=== PATIENT | male | born 1950 | race Caucasian/White ===

== ENCOUNTER 2021-08-15 07:49 | Outpatient (CLI) | payer MEDICARE, SELFPAY ==
[2021-08-15 08:15] LABS: Basophils Absolute Auto 0.1 K/mm3 (0.0-0.1); Basophils Percent Auto 0.7 % (0.2-1.2); Eosinophils Absolute Auto 0.4 K/mm3 (0-0.3); Eosinophils Percent Auto 5.3 % (0-4.4); Hemoglobin 13.5 g/dL (14.0-18.0); Immature Granulocyte Absolute 0.01 K/mm3 (0.00-0.031); Immature Granulocyte Percent A 0.1 % (0-0.5); Lymphocytes Absolute Auto 1.82 K/mm3 (0.9-3.2); Lymphocytes Percent Auto 26.9 % (18.3-44.2); Mean Corpuscular HGB Conc 33.8 g/dl (32-36); Mean Corpuscular Hemoglobin 32.8 pg (26-34); Mean Corpuscular Volume 97.1 fl (80-100); Mean Platelet Volume 9.7 fl (7.4-10.4); Monocytes Absolute Auto 0.8 K/mm3 (0.1-0.6); Neutrophils Absolute Auto 3.7 K/mm3 (1.3-6.7); Platelet Count Result 207 k/mm3 (150-375); Red Blood Count 4.12 M/mm3 (4.6-6.20); Red Cell Distribution Width 13.5 % (11.5-14.5); White Blood Count 6.8 K/mm3 (4.5-10.0)
[2021-08-15 08:30] LABS: Alanine Aminotransferase 61 U/L (4-50); Albumin Level 4.3 g/dL (3.5-5.1); Alkaline Phosphatase 41 U/L (38-126); Anion Gap 10 mmol/L (8-16); Aspartate Amino Transferase 57 U/L (17-59); Bilirubin,Total 0.4 mg/dL (0.2-1.3); Blood Urea Nitrogen 10 mg/dL (9-20); Calcium 9.3 mg/dL (8.4-10.2); Carbon Dioxide 27 mmol/L (22-30); Chloride 102 mmol/L (98-107); Cholesterol 152 mg/dL (0-200); Estimated Glomerular Filt Rate > 60; Glucose 122 mg/dL (65-110); HDL Direct 59 mg/dL; Potassium 4.6 mmol/L (3.4-5.0); Sodium 139 mmol/L (137-145); Triglycerides 79 mg/dL (<150)
[2021-08-15 08:41] LABS: LDL Cholesterol Direct 69 mg/dL
== END 2021-08-15 07:50 | disposition home or self-care (01) ==
LOC: ANHLAB 07:54
DX: R07.9 Chest pain, unspecified (principal)
CPT/HCPCS: 36415; 80053; 80061; 85025

== ENCOUNTER 2022-05-24 09:31 | Outpatient (CLI) | payer MEDICARE, SELFPAY ==
--- NOTE | 2022-05-24 11:00 | NEURO_ITS ---
Impression: # History of bilateral Carpal Tunnel Syndrome, complaining of pain and numbness in both hands. # Bilateral ulnar neuropathy with slowing across the elbows. # Mild bilateral Carpal Tunnel Syndrome. # Normal needle/EMG exam. # Clinical correlation recommended. Motor Nerve Conduction Upper Extremities Median Nerve Conduction Velocity (m/sec) Terminal Latency (msec) Response Voltage(mV) Elbow-Wrist Wrist Elbow Wrist Right 53 4.3 2 3 Left 58 4.0 3 4 Ulnar Nerve Conduction Velocity (m/sec) Terminal Latency (msec) Response Voltage(mV) Above Elbow Below Elbow Wrist Above Elbow Below Elbow Wrist Right 44 53 3.0 4 5 6 Left 46 57 2.7 5 5 6 F-Wave Latency Median (ms) Ulnar (ms) Right 30.7 27.0 Left 30.7 27.5 Sensory Nerve Conduction Upper Extremities Median Nerve Stimulation Terminal Latency (msec) Wrist/Digit Response Voltage (uV) Wrist Right 3.8/4.0 21/29 Left 3.8/4.1 31/20 Ulnar Nerve Stimulation Terminal Latency (msec) Wrist/Digit Response Voltage (uV) Wrist Right 2.8 17 Left 2.9 12 Radial Nerve Terminal Latency (msec) Response Voltage(mV) Right 2.0 32 Left 2.1 15 Left Right Muscles Examined Fibrillation Fasciculation Scarcity Voltage Duration Left Right Left Right Left Right Left Right Left Right Deltoid Biceps X X Brachioradialis Triceps X X Pronator Teres X X Ext Indicis X X Ext Digitorum X X Abd Poll Brev X X 1st Dorsal Interosseus Paraspinals MTDD
== END 2022-05-24 09:32 | disposition home or self-care (01) ==
PROVIDERS: Visit Provider Plastic Surgery
DX: G56.23 Lesion of ulnar nerve, bilateral upper limbs (principal); G56.03 Carpal tunnel syndrome, bilateral upper limbs
CPT/HCPCS: 95886; 95911

== ENCOUNTER 2023-03-30 06:51 | Outpatient (CLI) | payer MEDICARE, SELFPAY ==
[2023-03-30 07:35] LABS: Basophils Absolute Auto 0.1 K/mm3 (0.0-0.1); Basophils Percent Auto 0.7 % (0.2-1.2); Eosinophils Absolute Auto 0.3 K/mm3 (0-0.3); Hematocrit 41.4 % (42.0-52.0); Immature Granulocyte Absolute 0.02 K/mm3 (0.00-0.031); Immature Granulocyte Percent A 0.3 % (0-0.5); Lymphocytes Absolute Auto 1.71 K/mm3 (0.9-3.2); Lymphocytes Percent Auto 25.4 % (18.3-44.2); Mean Corpuscular HGB Conc 33.8 g/dl (32-36); Mean Corpuscular Hemoglobin 32.8 pg (26-34); Mean Platelet Volume 9.9 fl (7.4-10.4); Monocytes Absolute Auto 0.8 K/mm3 (0.1-0.6); Monocytes Percent Auto 11.7 % (2.6-8.5); Neutrophils Absolute Auto 3.8 K/mm3 (1.3-6.7); Neutrophils Percent Auto 56.9 % (45.5-73.1); Platelet Count Result 226 k/mm3 (150-375); Red Blood Count 4.27 M/mm3 (4.6-6.20); Red Cell Distribution Width 13.2 % (11.5-14.5); White Blood Count 6.7 K/mm3 (4.5-10.0)
[2023-03-30 07:42] LABS: Alanine Aminotransferase 50 U/L (6-50); Albumin Level 4.6 g/dL (3.5-5.1); Alkaline Phosphatase 48 U/L (38-126); Anion Gap 6 mmol/L (8-16); Aspartate Amino Transferase 54 U/L (17-59); Bilirubin,Total 0.6 mg/dL (0.2-1.3); Blood Urea Nitrogen 12 mg/dL (9-20); Calcium 9.4 mg/dL (8.4-10.2); Carbon Dioxide 29 mmol/L (22-30); Chloride 103 mmol/L (98-107); Cholesterol 174 mg/dL (0-200); Estimated Glomerular Filt Rate > 60; Glucose 104 mg/dL (65-110); HDL Direct 68 mg/dL; Sodium 138 mmol/L (137-145); Triglycerides 59 mg/dL (<150)
[2023-03-30 07:53] LABS: LDL Cholesterol Direct 82 mg/dL
== END 2023-03-30 06:52 | disposition home or self-care (01) ==
DX: I25.10 Atherosclerotic heart disease of native coronary artery without angina pectoris (principal); I10 Essential (primary) hypertension; E78.2 Mixed hyperlipidemia
CPT/HCPCS: 36415; 80053; 80061; 85025

== ENCOUNTER 2023-08-15 06:59 | Outpatient (CLI) | payer MEDICARE, SELFPAY ==
--- NOTE | ~2023-08-15 | XR_ITS ---
XR knee LT 3V DATE: 08/15/2023 07:24 INDICATION: Bilateral knee pain, right greater than left TECHNIQUE: [place] and standing AP and lateral views COMPARISON: None FINDINGS: There is femoral, popliteal and trifurcation artery calcification. Superior pole patellar enthesopathy at quadriceps tendon insertion site. There is mild periarticular spurring of the patella. Joint spaces are relatively well preserved. No r adiopaque intra-articular loose body or chondral calcinosis. No fracture or dislocation or joint effusion. No periosteal reaction or bone destruction. IMPRESSION: Mild patellofemoral osteoarthritis Prominent arterial calcifications Reviewed, dictated and finalized at location B. [place] [employer]
--- NOTE | ~2023-08-15 | XR_ITS ---
XR knee RT 3V DATE: 08/15/2023 07:25 INDICATION: Bilateral knee pain, right greater than left TECHNIQUE: [place] and standing AP and lateral views COMPARISON: None FINDINGS: Superior pole patellar enthesopathy. There is mild periarticular spurring of the patellofemoral joint. Joint spaces are relatively preserved. No fracture or dislocation or joint effusion. No radiopaque intra-articular loose body or, calcinosis . No periosteal reaction or bone destruction. Femoral, popliteal and trifurcation artery calcification. IMPRESSION: Mild patellofemoral osteoarthritis Reviewed, dictated and finalized at location B. [employer]
== END 2023-08-15 07:00 | disposition home or self-care (01) ==
DX: M17.0 Bilateral primary osteoarthritis of knee (principal)
CPT/HCPCS: 73562

== ENCOUNTER 2023-08-29 06:42 | Outpatient (CLI) | payer MEDICARE, SELFPAY ==
[2023-08-29 07:28] LABS: Basophils Percent Auto 0.3 % (0.2-1.2); Eosinophils Absolute Auto 0.1 K/mm3 (0-0.3); Eosinophils Percent Auto 0.6 % (0-4.4); Hematocrit 42.2 % (42.0-52.0); Hemoglobin 13.8 g/dL (14.0-18.0); Immature Granulocyte Absolute 0.04 K/mm3 (0.00-0.031); Immature Granulocyte Percent A 0.3 % (0-0.5); Lymphocytes Absolute Auto 3.59 K/mm3 (0.9-3.2); Lymphocytes Percent Auto 28.9 % (18.3-44.2); Mean Corpuscular HGB Conc 32.7 g/dl (32-36); Mean Corpuscular Hemoglobin 32.1 pg (26-34); Mean Corpuscular Volume 98.1 fl (80-100); Mean Platelet Volume 10.1 fl (7.4-10.4); Monocytes Absolute Auto 1.4 K/mm3 (0.1-0.6); Monocytes Percent Auto 10.9 % (2.6-8.5); Neutrophils Absolute Auto 7.3 K/mm3 (1.3-6.7); Platelet Count Result 221 k/mm3 (150-375); Red Cell Distribution Width 13.7 % (11.5-14.5); White Blood Count 12.4 K/mm3 (4.5-10.0)
[2023-08-29 07:31] LABS: Hemoglobin A1C 6.4 % (<5.7)
[2023-08-29 07:32] LABS: Alanine Aminotransferase 51 U/L (6-50); Albumin Level 4.6 g/dL (3.5-5.1); Alkaline Phosphatase 40 U/L (38-126); Anion Gap 7 mmol/L (8-16); Aspartate Amino Transferase 37 U/L (17-59); Bilirubin,Total 0.5 mg/dL (0.2-1.3); Blood Urea Nitrogen 15 mg/dL (9-20); CRP < 0.5 mg/dL (<1.0); Calcium 9.8 mg/dL (8.4-10.2); Carbon Dioxide 29 mmol/L (22-30); Chloride 106 mmol/L (98-107); Cholesterol 154 mg/dL (0-200); Estimated Glomerular Filt Rate > 60; Glucose 108 mg/dL (65-110); HDL Direct 58 mg/dL; Sodium 142 mmol/L (137-145); Triglycerides 61 mg/dL (<150); Uric Acid 5.8 mg/dL (3.5-8.5)
[2023-08-29 07:34] LABS: Appearance Urine Clear (Clear); Bacteria Urine None Seen /hpf; Bilirubin Urine Negative (Negative); Blood Urine 1+ (Negative); Color Urine Yellow (Yellow); Glucose Urine UA Negative (Negative); Ketones Urine Trace mg/dL (Negative); Leukocyte Esterase Ur Negative LEU/UL (Negative); Nitrate Urine Negative (Negative); Non Pathogenic Casts 0-2; Protein Urine Negative (Negative); RBC Urine 0-2 /hpf (0-2); Specific Grav Ur 1.022 (1.001-1.035); Squamous Epithelial Cell Urine None seen /hpf (Few); Urobilinogen Urine 0.2 mg/dL (<2.0); WBC Urine 0-5 /hpf; pH Urine 5.5 (5.0-9.0)
[2023-08-29 07:41] LABS: LDL Cholesterol Direct 80 mg/dL
[2023-08-29 07:59] LABS: Prostate Specific Antigen 0.8 ng/mL (< OR = 4.0)
[2023-08-29 08:22] LABS: Add Urine Microscopic? YES
[2023-08-29 08:33] LABS: Free T4 Free Thyroxine 0.73 ng/mL (0.78-2.19)
[2023-08-29 09:08] LABS: Erythrocyte Sedimentation Rate 21 mm/hr (0-20)
== END 2023-08-29 06:43 | disposition home or self-care (01) ==
LOC: ANHLAB 06:45
PROVIDERS: PCP Internal Medicine; Visit Provider Internal Medicine
DX: I10 Essential (primary) hypertension (principal); Z13.1 Encounter for screening for diabetes mellitus; Z79.899 Other long term (current) drug therapy; Z13.29 Encounter for screening for other suspected endocrine disorder; M25.461 Effusion, right knee; M25.561 Pain in right knee; E78.5 Hyperlipidemia, unspecified; Z12.5 Encounter for screening for malignant neoplasm of prostate
CPT/HCPCS: 36415; 80053; 80061; 81001; 83036; 84153; 84439; 84443; 84550; 85025; 85652; 86140; G0103

== ENCOUNTER 2023-09-03 10:37 | Outpatient (CLI) | payer MEDICARE, SELFPAY ==
--- NOTE | ~2023-09-03 | XR_ITS ---
EXAMINATION: XR fl inj knee RT for MR/CT DATE: 09/03/2023 11:21 INDICATION: Right knee pain TECHNIQUE: A time-out was performed to verify the patient's name, date of , and procedure to b e performed. The procedure including the risks, benefits, and alternatives was discussed with the pat ient. Risks discussed included bleeding and infection. The patient understood the risks and agreed to proceed. The skin overlying the lateral aspect of the right knee joint was prepped and draped in us ua sterile fashion. Anesthetic was administered with 1% lidocaine subcutaneously. A 22 G needle wa s advanced under fluoroscopic guidance into the joint. 44 mL of a 5:2:1 mixture of sterile saline:Om nipaque 350:1% lidocaine was injected into the right knee joint with intra-articular administration c onfirmed with intermittent fluoroscopy. The needle was removed and the entry site was cleaned and lazara ssed. There were no immediate complications. Fluoroscopy exposure time was 0.1 minutes. The total nu mber of images was 7. Total DAP was 0.088 Gycm^2 FINDINGS: Real-time fluoroscopy demonstrates the needle and contrast in the right knee joint. IMPRESSION: 1. Successful right knee joint injection of an iodinated contrast mixture for sequences knee arthrogr am which will be dictated separately. Reviewed, dictated and finalized at location A. [employer] IMPRESSION: 1. Successful right knee joint injection of an iodinated contrast mixture for s equences knee arthrogram which will be dictated separately.
--- NOTE | ~2023-09-03 | CT_ITS ---
EXAMINATION: CT knee RT w con DATE: 09/03/2023 12:13 INDICATION: Right knee pain TECHNIQUE: High resolution computed tomography (CT) of the right knee was performed with intra-articu lar contrast but without intravenous contrast. Details of the contrast mixture and joint injection myers ve been dictated separately. Additional sagittal and coronal reconstructions were performed. Automate d exposure control and iterative reconstruction technique were employed. The dose-length product was 225.61 mGy-cm. COMPARISON: None FINDINGS: Bone alignment is normal. No fracture. Full-thickness radial tear extending across the lateral aspect of the posterior horn of the medial meniscus near the posterior root. Partial-thickness cartilage lo ss with mild chondral surface irregularity along the anterior to central weightbearing medial femoral condyle and the anterior third of the medial tibial plateau. Lateral meniscus is normal. There is mi ld partial-thickness cartilage loss with smooth chondral surface along the lateral margin of the post erior weightbearing lateral femoral condyle. Remaining articular cartilage appears relatively preserv ed. There is deep chondral ulceration along the patellar apical ridge and medial facet. Cartilage thi ckness but are preserved but with additional deep chondral fissuring at the lateral patellar facet. T rochlear cartilage appears relatively preserved. There are enthesophytes at the patellar insertion of the distal quadriceps tendon. Small amount of peripheral vascular catheter lesion along the poplitea l artery extending into the anterior tibial artery and tibioperoneal trunk, the latter with up to 30% stenosis. Soft tissues are otherwise unremarkable. IMPRESSION: 1. Full-thickness radial tear near the posterior root of the medial meniscus. 2. Mild tricompartmental osteoarthritis Reviewed, dictated and finalized at location A. 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
== END 2023-09-03 10:38 ==
LOC: MICIMG 10:38
PROVIDERS: PCP Internal Medicine; Visit Provider Internal Medicine
DX: M25.461 Effusion, right knee (principal); M17.11 Unilateral primary osteoarthritis, right knee; S83.241A Other tear of medial meniscus, current injury, right knee, initial encounter; X58.XXXA Exposure to other specified factors, initial encounter
CPT/HCPCS: 20610; 73701; 77002; Q9967

== ENCOUNTER 2023-10-16 01:30 | Day surgery (SDC) | payer MEDICARE, SELFPAY ==
[2023-10-08 15:29] VITALS: BMI 23.0
--- NOTE | 2023-10-08 15:45 | PC.NURSE ---
Report to the Outpatient Waiting Room, entrance under the green pavilion located off [facility], at time _1130_ on date __10/16/23 . Planned Procedure Time: __1:30 PM . Time changes happen often and if your time is changed the preop area will call you the afternoon before. - You and your visitor will be asked to self-screen and do not enter if you have any COVID symptoms. - A mask is optional within the hospital at this time. Patients may have clear liquids (water, carbonated beverages, clear teas, apple juice) until 3 hours prior to surgery (1030 AM) with a maximum of 20 ounces. - No food from midnight until time of surgery - Infants may have breast milk until 4 hours before surgery, formula 6 hours prior to surgery. - Children will be allowed to drink immediately following surgery. If applicable, please bring a bottle or sippy cup to assist with drinking. Juice, water, soda, and popsicles are readily available. For infants on formula, please bring formula the day of surgery. Pacifiers are allowed. Take the following medications with a SIP of water the morning of surgery: _CARVEDILOL_ DO NOT STOP ANY OF YOUR OTHER PRESCRIPTION MEDICATIONS PRIOR TO SURGERY ?EXCEPT THE FOLLOWING Medications to discontinue per DR. SILVA/DR. LOPES - _PLAVIX 5 DAYS PRIOR TO SURGERY, Date to take last dose 10/10/23_ Please no make-up, nail indonesian, hairspray, perfume, deodorant, or body powder the day of surgery. No jewelry (including any body piercings) or valuables the day of surgery, leave them at home. Please take a shower or bath the night before, or the morning of, surgery with an antibacterial soap. Wear comfortable, loose fitting clothing. Children are encouraged to wear pajamas. - Jewelry must be removed prior to entering the operating room. Rings and piercings that are not removed may be cut off. - The hospital will not accept responsibility for valuables. - Please leave all valuables, including medications, at home the day of surgery. If you are going home after surgery, a licensed stacker driver must drive you home. - NO public transportation without another adult if you receive anesthesia. - We recommend that an adult stay with you for 24 hours following discharge. - We also recommend that you do not drive, make important decision, drink alcoholic beverages, or take any drugs that were not prescribed by your health care provider for at least 24 hours after your discharge time. For Pediatric surgeries, we recommend two adults accompany the child home. Follow any additional instructions given to you from your surgeon. If you or anyone in your household have experienced Covid symptoms in the past week, please notify your surgeon or the nurse liaison at the phone number below for possible testing. Telephone instructions given to ____PT and asked if any additional questions and then verbalized understanding. Patient advised to call surgeon office or pre surgery nurse liaison [phone] if any additional questions.
[2023-10-16] VITALS (8 sets, daily range): BP systolic 110–159; BP diastolic 62–84; PULSE 59–74; RESP 10–18; TEMP 36.1–36.2; O2SAT 93–100
--- NOTE | 2023-10-16 07:13 | WPDHPUPDATE1 ---
History and Physical Update Update Date/Time: 10/16/23 07:13 History and Physical has been reviewed, including an updated exam of the patient. There are NO changes in the patient's condition. Risks, benefits, and alternatives have been discussed and questions answered. Patient agrees to proceed with procedure.
[2023-10-16] MEDS: CELECOXIB 200 MG CAPSULE PO (10:10)
[2023-10-16] MEDS: ACETAMINOPHEN 500 MG TABLET 1000 MG PO (10:10)
--- NOTE | 2023-10-16 10:11 | WPDANESEPPF ---
Anes - Initial Pre Proc Eval Procedure: Operation Date: 10/16/23 13:30 Proposed Procedures p Right Knee Arthroscopy - Marco Lo MD Date/Time: 10/16/23 10:11 Surgeon: Marco Lo MD Pre Op Diagnosis: right knee medial meniscus tear Patient Data Age: 73 Gender: M Height: 1.78 m Weight: 72.72 kg Allergies Allergy/AdvReac Type Severity Reaction Status Date / Time pumpkin Allergy Hives Verified 10/08/23 15:25 Home Medications Medication Instructions Recorded Confirmed Type amlodipine 5 mg tablet 5 mg PO DAILY 08/27/23 10/08/23 History atorvastatin 40 mg tablet 40 mg PO DAILY 08/27/23 10/08/23 History carvedilol 12.5 mg tablet 12.5 mg PO DAILY 08/27/23 10/08/23 History clopidogrel 75 mg tablet 75 mg PO DAILY 08/27/23 10/08/23 History pantoprazole 40 mg tablet,delayed 40 mg PO QAM 08/27/23 10/08/23 History release Patient hx anesthesia problems: none Family hx anesthesia problems: none Results Review: All pre-operative results and documents have been reviewed as part of the pre-operative evaluation. [facility] Past Medical History Medical History Benign essential hypertension BMI 22.0-22.9, adult Carotid stenosis, bilateral Colon cancer screening Dupuytren's contracture of both hands Encounter to establish care History of retinal vein occlusion Hyperlipidemia Hypertension Left temporal headache On [facility] drug therapy Prostate cancer screening Right knee pain Right sided temporal headache Surgical History Surgical History History of carpal tunnel repair Hx of CABG S/P cervical spinal fusion S/P right rotator cuff repair Family History Family History Mother Cerebrovascular accident Acute myocardial infarction ASHD (arteriosclerotic heart disease) Diabetes mellitus Father Parkinsons Dementia Cerebrovascular accident Sibling Dementia Alive and well Social History Social History Social History: caffeine use Smoking status: Never smoker Second hand tobacco smoke exposure: No Alcohol intake: current Drinks per week: 8 Substance use: never Substance use type: does not use Do You Feel Safe in your Home?: Yes Lack of Transportation: No Lack of Food: Never True Current Housing: I Have Housing Concerned About Future Housing: No Difficulty Paying Gas/Electric Bills: No Difficulty Paying for Meds: No Currently Unemployed: No Difficulty w/ Childcare or Family Care: No Living arrangements: with family Occupation/Education: retired Gender identity (if verbalized by the patient): Male Spiritual care concerns: No Anes - Eval Final PreProcedure Day of Procedure 10/16/23 10:11 Patient weight: normal Heart: regular rate and rhythm and murmur (2/6 at L sternal border. ) Lungs: clear to auscultation Airway: Mallampati scale class II Neurological: alert and oriented Last oral intake: >/= 8 hours ASA classification: III Emergent: no Anesthetic plan: proceed Anesthesia type and monitoring: general and standard monitoring Results Review: All pre-operative results and documents have been reviewed as part of the pre-operative evaluation. Cardiology note and clearance reviewed and appreciated. Informed Consent: The patient's anesthetic plan and its attendant risks and benefits were discussed with the patient/family/POA. Questions were solicited and answers provided to the satisfaction of the patient/family/POA.
[2023-10-16] MEDS: LACTATED RINGERS 1,000 ML 30 ML IV CONT (10:20)
[2023-10-16] MEDS: ceFAZolin 2 GM/D5W 50 ML 2 GM/50 ML BAG IVPB (10:49)
[2023-10-16] MEDS: BUPivacaine HCL 0.5% 10 ML AMP 30 ML INFILTRATE (11:19)
[2023-10-16] MEDS: methylPREDNISolone ACETATE 80 MG/ML VIAL IM (11:21)
--- NOTE | 2023-10-16 12:21 | P.OP_ITS ---
Procedure Note - Detailed Date of Procedure 10/16/23 Pre-op Diagnosis right knee medial meniscus tear Post-op Diagnosis Same Procedure Performed RIGHT KNEE SCOPE Surgeon Marco Lo MD Anesthesia General Description of Procedure PATIENT WAS TAKEN TO THE OR. THE RIGHT LEG WAS PREPPED AND DRAPED STERILE. TROC ARS WERE PLACED IN THE USUAL FASHION. THERE WAS A LARGE EFFUSION. THE CAMERA WAS INTRODUCED. THERE WAS CHONDROMALACIA TO THE PATELLA FEMORAL JOINT. THERE WAS A LOT OF SYNOVITIS IN ALL COMPARTMENTS. THE MEDIAL COMPARTMENT SHOWED CHONDROMALACIA TO THE MEDIAL FEMORAL CONDYLE. A SHAVER WAS USED TO PREFORM A CHONDROPLASTY. THERE WAS A COMPLEX MEDIAL MENISCUS TEAR AT THE ROOT OF THE MEDIAL MENISCUS. THE TEAR WAS RESECTED WITH A BITER AND A SHAVER DOWN TO A SMOOTH BASE. THE ACL WAS INTACT. THE LATERAL MENISCUS WAS NOT TORN. THE LAT COMPARTMENT HAD MINIMAL CHONDROMALACIA. CHONDROPLASTY WAS PREFORMED. A SYNOVECTOMY WAS PREFORMED WELL. THE PATELLO FEMORAL JOINT UNDERWENT CHONDROPLASTY. THERE WAS GRADE 2 AND 3 CHONDROMALACIA IN PART OF THE TROCHLEA AND PART OF THE PATELLA. SYNOVECTOMY WAS PREFORMED IN THE SUPERIOR MEDIAL COMPARTMENT. THE WOUNDS WERE APPROXIMATED WITH 4.0 NYLON. STERILE DRESSING WAS APPLIED. PATIENT WAS EXTUBATED. Estimated Blood Loss 5 Complications No immediate complications Condition Stable Disposition PACU
[2023-10-16] MEDS: oxyCODONE HCL (*CRX) 5 MG TAB IR PO (13:11)
--- NOTE | 2023-10-16 13:21 | SUR.PHASEII ---
RN called Dr. Lo and he said Plavix can be resumed tomorrow.
== END 2023-10-16 13:56 | disposition home or self-care (01) ==
PROVIDERS: PCP Internal Medicine; Visit Provider Orthopaedic Surgery
PROC: (CPT 29870; principal; 2023-10-16 13:30)
DX: M23.331 Other meniscus derangements, other medial meniscus, right knee (principal); M65.861 Other synovitis and tenosynovitis, right lower leg; M22.41 Chondromalacia patellae, right knee; I10 Essential (primary) hypertension; E78.5 Hyperlipidemia, unspecified; Z79.02 Long term (current) use of antithrombotics/antiplatelets; Z95.1 Presence of aortocoronary bypass graft; Z98.1 Arthrodesis status
CPT/HCPCS: 29881; 29876; A9270; J0690; J1010; J1100; J2250; J2371; J2405; J2704; J3010; J7120

== ENCOUNTER 2024-02-25 06:58 | Outpatient (CLI) | payer MEDICARE, SELFPAY ==
[2024-02-25 07:39] LABS: Alanine Aminotransferase 67 U/L (6-50); Albumin Level 4.3 g/dL (3.5-5.1); Alkaline Phosphatase 47 U/L (38-126); Anion Gap 10 mmol/L (4-12); Aspartate Amino Transferase 66 U/L (17-59); Bilirubin,Total 0.4 mg/dL (0.2-1.3); Blood Urea Nitrogen 12 mg/dL (9-20); Calcium 9.4 mg/dL (8.4-10.2); Carbon Dioxide 26 mmol/L (22-30); Chloride 102 mmol/L (98-107); Cholesterol 183 mg/dL (0-200); Estimated Glomerular Filt Rate > 60; Glucose 117 mg/dL (65-110); HDL Direct 60 mg/dL; Potassium 4.2 mmol/L (3.4-5.0); Sodium 138 mmol/L (137-145); Triglycerides 110 mg/dL (<150)
[2024-02-25 07:51] LABS: LDL Cholesterol Direct 96 mg/dL
[2024-02-25 11:15] LABS: Hemoglobin A1C 6.3 % (<5.7)
== END 2024-02-25 06:59 | disposition home or self-care (01) ==
LOC: ANHLAB 07:01
PROVIDERS: PCP Internal Medicine; Visit Provider Internal Medicine
DX: E78.5 Hyperlipidemia, unspecified (principal); E11.9 Type 2 diabetes mellitus without complications; Z79.899 Other long term (current) drug therapy; I10 Essential (primary) hypertension
CPT/HCPCS: 36415; 80053; 80061; 83036

== ENCOUNTER 2024-03-04 06:53 | Outpatient (CLI) | payer MEDICARE, SELFPAY ==
[2024-03-04 20:09] LABS: GGT 64 U/L (3-70)
== END 2024-03-04 06:54 | disposition home or self-care (01) ==
LOC: ANHLAB 06:58
PROVIDERS: PCP Internal Medicine; Visit Provider Internal Medicine
DX: R74.8 Abnormal levels of other serum enzymes (principal)
CPT/HCPCS: 36415; 82977

== ENCOUNTER 2024-03-11 08:39 | Outpatient (CLI) | payer MEDICARE, SELFPAY ==
--- NOTE | ~2024-03-11 | US_ITS ---
EXAMINATION: US abdomen limited DATE: 03/11/2024 08:55 INDICATION: Abnormal levels of other serum enzymes. TECHNIQUE: Multiple grayscale and Doppler ultrasound images of the abdomen were obtained. COMPARISON: None FINDINGS: The pancreas is obscured by bowel gas. There is diffuse hepatic steatosis. No liver surface nodularity. There is normal flow in main portal vein. The gallbladder is normal in size. No gallston es or gallbladder wall thickening. There is no sonographic Ceja's sign. The common duct is normal a nd measures 3 mm. IMPRESSION: 1. Diffuse hepatic steatosis. Reviewed, dictated and finalized at location A.
== END 2024-03-11 08:40 | disposition home or self-care (01) ==
LOC: GOSHIMG 08:40
PROVIDERS: PCP Internal Medicine; Visit Provider Internal Medicine
DX: R74.8 Abnormal levels of other serum enzymes (principal); K76.0 Fatty (change of) liver, not elsewhere classified
CPT/HCPCS: 76705

== ENCOUNTER 2024-09-26 09:59 | Outpatient (CLI) | payer MEDICARE, SELFPAY ==
--- NOTE | ~2024-09-26 | XR_ITS ---
EXAMINATION: XR shoulder LT min 2V DATE: 09/26/2024 10:18 INDICATION: Left shoulder pain with difficulty lifting shoulder TECHNIQUE: AP internally and externally rotated, AP oblique externally rotated and transscapular Y vi ews of the left shoulder were obtained. COMPARISON: Chest radiograph dated 07/03/2019 FINDINGS: Normal alignment. Unchanged subtle old healed fracture deformities of the anterior left 4th - 6th rib s. No new fractures.Mild glenohumeral osteoarthritis. Mild acromion clavicular osteoarthritis. There is some heterotopic ossification dorsal to the lateral head of the clavicle which could represent seq uela of prior trauma such as a chronic chronic clavicular joint separation capsular injury. Tiny focu s of amorphous calcific density along the posterior facet of the greater tuberosity consistent with t eres minor calcific tendinitis. Intraplate-screw fixation for anterior spinal fusion at the cervicoth oracic junction. Median sternotomy wires and mediastinal surgical clips are seen, likely from prior c oronary artery bypass grafting. Cardiac pacemaker lead, potentially epicardial projects over the righ t side of the heart. IMPRESSION: 1. Mild left glenohumeral and acromioclavicular osteoarthritis. No acute osseous abnormality. 2. Tiny focus of left teres minor calcific tendinitis. Reviewed, dictated and finalized at location B. IMPRESSION: 1. Mild left glenohumeral and acromioclavicular osteoarthritis. No acute osseou s abnormality. 2. Tiny focus of left teres minor calcific tendinitis.
--- OUTSIDE RECORDS SUMMARY | 2024-09-26 10:50 | XMS_ITS | Referral Summary ---
Author Organization [facility] Address [address] [place] [address] Care Team Providers Care Press Operator Automatic Name Role Phone Octavio Adan MD Primary Care Provider [phone] Allergies Active Allergy Reactions Criticality Noted Date Comments Pumpkin Other (See comments) Low Reaction: GI upset, Tomato Other (See comments) Low Reaction: GI upset, Medications carvediloL (COREG) 12.5 mg tablet TAKE 1 TABLET(12. 5 MG) BY MOUTH TWICE DAILY WITH MEALS 180 tablet 2 3 Active atorvastatin (LIPITOR) 40 mg tablet TAKE 1 TABLET(40 MG) BY MOUTH DAILY 90 tablet 3 4 10/23/[address] (PROTONIX) 40 mg EC tablet Take 1 tablet (40 mg total) by mouth daily 90 tablet 4 Active amLODIPine (NORVASC) 5 mg tablet TAKE 1 TABLET(5 MG) BY MOUTH DAILY 90 tablet 3 5 Active clopidogreL (PLAVIX) 75 mg tablet TAKE 1 TABLET(75 MG) BY MOUTH DAILY 90 tablet 3 5 Active clopidogreL (PLAVIX) 75 mg tablet TAKE 1 TABLET(75 MG) BY MOUTH DAILY 90 tablet 3 4 09/26/19 25 Discontinued Active Problems Problem Noted Date Diagnosed Date Nonrheumatic aortic valve stenosis 08/09/2021 Assessment & Plan (04/08/2024 9:23 AM CDT): Asymptomatic. Echocardiogram shows stable aortic stenosis with a mean gradient of 26 mmHg. Continue annual echocardiograms. Assessment & Plan (10/05/2023 10:18 AM CDT): Asymptomatic. Last echo showed mean gradient of 25 mm Hg. Follow-up echocardiogram next visit. Assessment & Plan (04/10/2023 9:58 AM CDT): Asymptomatic. Check echocardiogram next visit Assessment & Plan (10/03/2022 9:49 AM CDT): Slight progression of his aortic stenosis by echo but still in the moderate range. The patient has no symptoms. Check echo again in 1 year. Assessment & Plan (08/09/2021 3:28 PM TUBING TESTER): The patient's aortic stenosis is moderate and asymptomatic. Continue annual echocardiograms. Tubular adenoma 11/16/2020 Hx of CABG 07/16/2020 Stress fracture of left ankle 11/04/2019 Assessment & Plan (11/04/2019 10:03 AM CDT): The patient new symptoms of point tenderness in the distal aspect of the left ankle will obtain x-rays to rule out a stress fracture. 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 We will obtain a follow-up carotid duplex Encounter for screening colonoscopy 11/04/2019 Overview (11/04/2019): Added automatically from request for surgery [id number] Coronary artery disease invo lving craig coronary artery of craig heart without angina pectoris 05/06/2019 Assessment & Plan (04/08/2024 9:23 AM CDT): No angina. Continue high-intensity statin and clopidogrel. Assessment & Plan (10/05/2023 10:18 AM CDT): Status post CABG. Asymptomatic. Assessment & Plan (04/10/2023 9:58 AM CDT): No angina status post coronary bypass grafting. Continue aspirin and clopidogrel. Assessment & Plan (10/03/2022 9:41 AM CDT): No angina. Same therapy. Assessment & Plan (08/09/2021 3:28 PM TUBING TESTER): The patient is angina free status post coronary bypass grafting. Assessment & Plan (11/04/2019 10:03 AM CDT): Doing well with no symptoms of angina or congestive heart failure. Return to clinic 6 months Assessment & Plan (05/06/2019 9:32 AM TUBING TESTER): The patient remains asymptomatic. I reviewed his medications for treatment of his hypertension hyperlipidemia and encouraged continued exercise. Primary hypertension 05/06/2019 Assessment & Plan (10/05/2023 10:18 AM CDT): Controlled. Assessment & Plan (04/10/2023 9:59 AM CDT): Continue amlodipine and carvedilol. Assessment & Plan (10/03/2022 9:49 AM CDT): Continue amlodipine. Check CMP. Assessment & Plan (08/09/2021 3:29 PM TUBING TESTER): Controlled with amlodipine and carvedilol. No changes recommended. 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 Be's esophagus without dysplasia 10/18/2017 Nuclear senile cataract of both eyes 11/06/2016 Assessment & Plan (01/13/2019 11:03 AM CDT): Defer cataract surgery until signs and symptoms indicate. Pt was educated on the diagnosis. Recommend daily UV protection. Rotator cuff syndrome 07/20/2015 Overview (10/05/2016): Incomplete tear of right rotator cuff Multiple vessel coronary artery disease 09/26/19 15 Obstruction of carotid artery 09/15/2014 Assessment & Plan (08/09/2021 3:29 PM TUBING TESTER): The patient is status post a carotid endarterectomy. Obtain a follow-up carotid duplex. 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 Resolved peripheral hemes. Assessment & Plan (01/13/2019 11:03 AM CDT): Signs/sx CVA and Amaurosis reviewed. Pt ed to seek emergent care at ED with the onset of any sx. Continue current medications as directed. Hyperlipidemia 06/08/2014 Overview (10/05/2016): Hyperlipidemia Assessment & Plan (04/08/2024 9:23 AM CDT): Continue atorvastatin with an LDL goal of less than 70. Assessment & Plan (10/05/2023 10:18 AM CDT): Continue atorvastatin. LDL goal is 70 Assessment & Plan (04/10/2023 9:59 AM CDT): Last LDL cholesterol was 82. Continue atorvastatin. Assessment & Plan (10/03/2022 9:49 AM CDT): Check lipid panel. Assessment & Plan (08/09/2021 3:29 PM TUBING TESTER): Check labs. Continue atorvastatin. Assessment & Plan (05/06/2019 9:33 AM TUBING TESTER): Is to the patient continue his atorvastatin for his hyperlipidemia Abnormal blood chemistry level 06/07/2014 Overview (10/05/2016): Blood chemistry abnormal Gastroesophageal reflux disease 06/03/2014 Overview (10/05/2016): Gastroesophageal reflux disease Immunizations Immunization Administration Dates Next Due Influenza, Split 05/03/2009 Influenza, Trivalent, IM (MDV) 04/01/2013,2010 Influenza, Trivalent, Recomb inant, Egg Free, Preservative Free, Antibiotic Free, IM (FLUBLOK) 04/01/2014,04/01/2014 Pneumococcal Polysaccharide PPV23 06/08/2014,01/2014 Td, adsorbed 10/30/2002 Social History Tobacco Use Types Packs/Day Years Used Date Smoking Tobacco: Never Cigarettes Smokeless Tobacco: Never Tobacco Cessation:Counseling Given: Not Answered Alcohol Use Standard Drinks/Week Comments Yes 0 (1 standard drink = 0.6 oz pur e alcohol) moderate AUDIT-C Answer Date Recorded Q1: How often do you have a drink containing alc ohol? 2-3 times a week 11/01/2022 Q2: How many drinks containi ng alcohol do you have on a typical day when you are drinking? 3 or 4 11/01/2022 Q3: How often do you have si x or more drinks on one occasion? Less than monthly 11/01/2022 PHQ-2 Answer Date Recorded PHQ-2 Total Score (If total score is 3 or more points, staff should administer the PHQ-9) 0 08/17/2022 Personal Safety Answer Date Recorded Have you ever been in or are you currently in a harmful physical or emotional relationship or is someone making you feel afraid or unsafe? Denies 11/01/2022 Sex and Gender Information Value Date Recorded Sex Assigned at Not on file Legal Sex Male 4:47 AM TUBING TESTER Gender Identity Not on file Sexual Orientation Not on file Last Filed Vital Signs Vital Sign Reading Time Taken Comments Blood Pressure 102/50 04/08/2024 8:54 AM CDT Pulse 73 04/08/2024 8:54 AM CDT Temperature 36.6 C (97.8 F) 07/30/2020 7:50 AM TUBING TESTER Respiratory Rate 16 04/08/2024 8:54 AM CDT Oxygen Saturation 98% 04/08/2024 8:54 AM CDT Inhaled Oxygen Concentration - - Weight 73 kg (161 lb) 04/08/2024 8:54 AM CDT Height 177.8 cm (5' 10 ) 10/05/2023 9:51 AM CDT Body Mass Index 23.1 10/05/2023 9:51 AM CDT Plan of Treatment Not on file Procedures Procedure Name Priority Date/Time Associated Diagnosis Comments COLONOSCOPY 11/26/2019 8:52 AM CDT SERUM HEPATITIS PANEL Routine 10/24/2013 6:38 AM CDT from Last 3 Months or Most Recently Relevant to Health Maintenance Results * COLONOSCOPY (11/26/2019 8:52 AM CDT) Anatomical Region Laterality Modality Other Narrative Procedure Note Edmond Rainey MD - 11/26/2019 8:52 AM CDT [facility] Endoscopy Lab Patient Name: Charlette Bennett Procedure Date: 11/26/2019 8:52 AM Date of : 1950 Admit Type: Outpatient Age: 69 Gender: Male Note Status: Finalized Attending MD: Edmond Rainey M.D. Procedure Date: 11/26/2019 Procedure: Colonoscopy Indications: Screening for colorectal malignant neoplasm, Last colonoscopy: October 2011 Providers: Edmond Rainey M.D., Ce Bailon, MANAGER COUNCIL(Anesthesia Staff), Romelia Ang RN Referring MD: Uvaldo Lemus M.D. Medicines: Monitored Anesthesia Care Complications: No immediate complications. Estimated Blood Loss: Estimated blood loss: none. Procedure: Pre-Anesthesia Assessment: - Airway Examination: normal oropharyngeal airwayand neck mobility. - Respiratory Examination: clear to auscultation. - ASA Grade Assessment: III - A patient with severe systemic disease. - After reviewing the risks and benefits, thepatient was deemed in satisfactory condition to undergo the procedure. - The risks and benefits of the procedure and the sedation options and risks were discussed with the patient. All questions were answered and informed consent was obtained. After I obtained informed consent, the scope waspassed under direct vision. Throughout the procedure, the patient's blood pressure, pulse, and oxygensaturations were monitored continuously. The scope was passedunder direct vision. The Colonoscope was introducedthrough the anus and advanced to the the cecum, identifiedby the appendiceal orifice, ileocecal valve andpalpation. The colonoscopy was performed with ease. The patient tolerated the procedure well. The quality of thebowel preparation was good. The quality of the bowel preparation was evaluated using the BBPS (BostonBowel Preparation Scale) with scores of: Right Colon = 3 (entire mucosa seen well with no residual staining, small fragments of stool or opaque liquid),Transverse Colon = 3 (entire mucosa seen well with no residual staining, small fragments of stool or opaque liquid) and Left Colon = 3 (entire mucosa seen well with no residual staining, small fragments of stool oropaque liquid). The total BBPS score equals 9. The bowel preparation used was SUPREP. Bowel prep was administered using a split dose. Findings: The perianal and digital rectal examinations were normal. Multiple medium-mouthed diverticula were found in the entire colon. A 5 mm polyp was found in the rectum. The polyp was sessile. Thepolyp was removed with a cold snare. Resection and retrieval were complete. Estimated blood loss: none. The retroflexed view of the distal rectum and anal verge was normaland showed no anal or rectal abnormalities. Impression: - Diverticulosis in the entire examined colon. - One 5 mm polyp in the rectum. Resected andretrieved. - The distal rectum and anal verge are normal on retroflexion view. Recommendation: - Discharge patient to home (ambulatory). - Await pathology results. - Repeat colonoscopy in 5 years for surveillance. - Resume Plavix (clopidogrel) at prior dosetomorrow. Procedure Code(s): --- Professional --- 03612, Colonoscopy, flexible; with removal oftumor(s), polyp(s), or other lesion(s) by snare technique Diagnosis Code(s): --- Professional --- Z12.11, Encounter for screening for malignantneoplasm of colon K62.1, Rectal polyp K57.30, Diverticulosis of large intestine without perforation or abscess without bleeding CPT copyright 2017 [employer]. All rights reserved. The codes documented in this report are preliminary and upon pre coder reviewmay be revised to meet current compliance requirements. Electronically signed by Edmond Rainey MD Edmond Rainey M.D. 11/26/2019 9:40:00 AM Number of Addenda: 0 Note Initiated On: 11/26/2019 8:52 AM Edmond Rainey MD ENDOSCOPY PROCEDURES Final Resul t * Serum Hepatitis panel (10/24/2013 6:38 AM CDT) HBV surface ag Negative Negative HISTO RICAL RESULTS HBV core ab, IgM Negative Negative HISTORICAL RESULTS HCV ab Negative Negative HISTORICAL RESULTS HAV ab, IgM Negative Negative HISTORIC AL RESULTS Serum 10/24/2013 6:38 AM CDT Cee Lee MD LAB BLOOD ORDERABLES Final R esult HISTORICAL RESULTS from Last 3 Months or Most Recently Relevant to Health Maintenance Insurance MEDICARE ADVANTAGE MEDICARE ADVANTAGE MEDICARE ADVANTAGE Member Subscriber Plan / Payer (Ef fective 2017-Present) Name:CHARLETTE BENNETT Relation to Subscriber:Self Name:Charlette Bennett Payer ID:[id number] (NAIC) Type:[facility] MEDICARE Address: [place] [phone] Care Teams Press Operator Automatic Relationship Specialty Start Date End Date Octavio Adan MD [address] [facility] [address] [facility] [address] [place] [address] PCP - General Internal Medicine 08/28/23
--- OUTSIDE RECORDS SUMMARY | 2024-09-26 10:50 | XMS_ITS | Clinical Summary ---
Author Organization [facility] Address [address] [place] [address] Care Team Providers Care Health Safety Specialist Name Role Phone Octavio Adan MD Primary Care Provider [phone] Allergies Active Allergy Reactions Criticality Noted Date [...] year. Assessment & Plan (08/09/2021 3:28 PM PATCHER): The patient's aortic stenosis is moderate and [...] (11/04/2019): Added automatically from request for surgery [id number] Coronary artery disease invo lving [place] coronary artery of [place] heart without angina pectoris 05/06/2019 Assessment & [...] therapy. Assessment & Plan (08/09/2021 3:28 PM PATCHER): The patient is angina free status post coronary bypass grafting. Assessment & Plan (11/04/2019 10:03 AM CDT): Doing well with no symptoms of angina or congestive heart failure. Return to clinic 6 months Assessment & Plan (05/06/2019 9:32 AM PATCHER): The patient remains asymptomatic. I reviewed his medications for treatment of his hypertension hyperlipidemia and encouraged continued exercise. Primary hypertension 05/06/2019 Assessment & Plan (10/05/2023 10:18 AM CDT): Controlled. Assessment & Plan (04/10/2023 9:59 AM CDT): Continue amlodipine and carvedilol. Assessment & Plan (10/03/2022 9:49 AM CDT): Continue amlodipine. Check CMP. Assessment & Plan (08/09/2021 3:29 PM PATCHER): Controlled with amlodipine and carvedilol. No changes recommended. Assessment & Plan (05/06/2019 9:33 AM PATCHER): Blood pressure is well controlled on his [...] 09/15/2014 Assessment & Plan (08/09/2021 3:29 PM PATCHER): The patient is status post a carotid [...] panel. Assessment & Plan (08/09/2021 3:29 PM PATCHER): Check labs. Continue atorvastatin. Assessment & Plan (05/06/2019 9:33 AM PATCHER): Is to the patient continue his atorvastatin for his hyperlipidemia Abnormal blood chemistry level 06/07/2014 Overview (10/05/2016): Blood chemistry abnormal Gastroesophageal reflux disease 06/03/2014 Overview (10/05/2016): Gastroesophageal reflux disease Immunizations Immunization Administration Dates Next Due Influenza, Split 05/03/2009 Influenza, Trivalent, IM (MDV) 04/01/2013,2010 Influenza, Trivalent, Recomb inant, Egg Free, Preservative Free, Antibiotic Free, IM (FLUBLOK) 04/01/2014,04/01/2014 Pneumococcal Polysaccharide PPV23 06/08/2014,01/2014 Td, adsorbed 10/30/2002 Surgical History Surgery Date Site/Laterality Comments OTHER SURGICAL HISTORY 07/02/2004 - 07/01/2005 Carpal Tunnel Surgery bilateral CERVICAL FUSION Cervical Fusion HEART SURGERY open heart surgery OTHER SURGICAL HISTORY Carotic Enarterectomy ESOPHAGOGASTRODUODENOSCOPY COLONOSCOPY 07/02/2011 - 07/01/2012 last screening 2011 UPPER GASTROINTESTINAL ENDOSCOPY KNEE SURGERY Scheduled 10/16/23 CORONARY ARTERY BYPASS GRAFT 2015 Medical History Medical History Date Comments Hx Other Medical Discectomy, cer vical Hx Other Medical carpel tunnel r elease Hx Other Medical Not Claustropho bic; Comments: GFC 02/17/2014 - Cerebrovascular accident (CVA) (HCC) Stroke Hypertension GERD (gastroesophageal reflux disease) Ocular ischemic syndrome Cataract Tinnitus Hyperlipidemia Heart disease 2014 Family History Medical History Relation Name Comments Other Brother 2 Alive and well; Hypertension Brother 3 Hypertension; Coronary artery disease Father Vinh nary artery disease; Cause of : Coronary artery disease Esophageal cancer Father Cancer, es ophageal; Coronary artery disease Mother Vinh nary artery disease; Cause of : Coronary artery disease Relation Name Status Comments Brother 1 Alive Brother 2 Brother 3 Father (Age 88) Mother (Age 65) Social History Tobacco Use Types Packs/Day Years [...] on file Legal Sex Male 4:47 AM PATCHER Gender Identity Not on file Sexual Orientation Not on file Obstetrics History Last Filed Vital Signs Vital Sign Reading Time Taken Comments Blood Pressure 102/50 04/08/2024 8:54 AM CDT Pulse 73 04/08/2024 8:54 AM CDT Temperature 36.6 C (97.8 F) 07/30/2020 7:50 AM PATCHER Respiratory Rate 16 04/08/2024 8:54 AM CDT Oxygen Saturation 98% 04/08/2024 8:54 AM CDT Inhaled Oxygen Concentration - - Weight 73 kg (161 lb) 04/08/2024 8:54 AM CDT Height 177.8 cm (5' 10 ) 10/05/2023 9:51 AM CDT Body Mass Index 23.1 10/05/2023 9:51 AM CDT Plan of Treatment Health Maintenance Due Date Last Done Comments Hepatitis B Screening 1967 Zoster Vaccine (1 of 2) 1999 DTaP/Tdap/Td Vaccine (1 - Tdap) 10/31/2002 3 Well Visit 65+ 2014 Pneumococcal vaccine 65+ (2 of 2 - PCV) 06/08/2015 06/08/2014, 06/08/2014 Depression Screening 08/17/2023 08/17/2022, 11/29/2021, 11/16/2020, Additional history exists Fall Risk Assessment 11/02/2023 11/01/2022 Influenza Vaccine (#1) 2024 4, 04/01/2014, 04/01/2013, Additional history exists Colon Cancer Screening-Colonoscopy 11/25/2029 11/26/2019 Hepatitis C Screening Completed 10/24/2013 Colon Cancer Screening-CT Colonography Discontinued 11/26/2019 Colon Cancer Screening-DNA Stool Discontinued 11/26/19 20 Colon Cancer Screening-FIT Discontinued 11/26/2019 Colon Cancer Screening-Sigmoidoscopy Discontinued 11/26/2019 Procedures Procedure Name Priority Date/Time Associated Diagnosis Comments COLONOSCOPY 11/26/2019 8:52 AM CDT SERUM HEPATITIS PANEL Routine 10/24/2013 6:38 AM CDT from Last 3 Months or Most Recently Relevant to Health Maintenance Results * COLONOSCOPY (11/26/2019 8:52 AM CDT) Anatomical Region Laterality Modality Other Narrative Procedure Note Edmond Rainey MD - 11/26/2019 8:52 AM CDT [facility] Endoscopy Lab Patient Name: Charlette Bennett Procedure Date: 11/26/2019 8:52 AM Date of : 1950 Admit Type: Outpatient Age: 69 Gender: Male Note Status: Finalized Attending MD: Edmond Rainey M.D. Procedure Date: 11/26/2019 Procedure: Colonoscopy Indications: Screening for colorectal malignant neoplasm, Last colonoscopy: October 2011 Providers: Edmond Rainey M.D., Ce Bailon CRNA(Anesthesia Staff), Romelia Ang RN Referring MD: Uvaldo [...] prior dosetomorrow. Procedure Code(s): --- Professional --- 91534, Colonoscopy, flexible; with removal oftumor(s), polyp(s), or other lesion(s) by snare technique Diagnosis Code(s): --- Professional --- Z12.11, Encounter for screening for malignantneoplasm of colon K62.1, Rectal polyp K57.30, Diverticulosis of large intestine without perforation or abscess without bleeding CPT copyright 2017 [employer]. All rights reserved. The codes documented in this report are preliminary and upon manifest clerk reviewmay be revised to meet current compliance [...] Most Recently Relevant to Health Maintenance Insurance [place] [id number] MEDICARE ADVANTAGE [place] [id number] [place] [phone] Care Teams Health Safety Specialist Relationship Specialty Start Date End Date Octavio Adan MD [address] [place] [address] [place] [address] PCP - General Internal Medicine 08/28/23
== END 2024-09-26 10:00 | disposition home or self-care (01) ==
PROVIDERS: PCP Internal Medicine; Visit Provider Internal Medicine
DX: M19.012 Primary osteoarthritis, left shoulder (principal)
CPT/HCPCS: 73030

== ENCOUNTER 2024-12-08 10:09 | Outpatient (CLI) | payer MEDICARE, SELFPAY ==
--- NOTE | ~2024-12-08 | XR_ITS ---
EXAMINATION: XR fl inj shoulder LT - MR/CT DATE: 12/08/2024 11:09 INDICATION: Left shoulder pain TECHNIQUE: A time-out was performed to verify the patient's name, date of , and procedure to b e performed. The procedure including the risks, benefits, and alternatives was discussed with the pat ient. Risks discussed included bleeding and infection. The patient understood the risks and agreed to proceed. The skin overlying the rotator cuff interval of the left glenohumeral joint was prepped an d draped in usual sterile fashion. Anesthetic was administered with 1% lidocaine subcutaneously. A 22 G needle was advanced under fluoroscopic guidance into the joint. Injectate consisting of 12 mL of 2:1:1 mixture of sterile saline:Omnipaque 350:1% lidocaine mixed 200:1 was injected with intra-artic ular administration confirmed with intermittent fluoroscopy. The needle was removed and the entry sit e was cleaned and dressed. There were no immediate complications. Fluoroscopy exposure time was 0.3 minutes. The total number of images was 225. Total DAP was 0.455 Gycm^2. FINDINGS: Real-time fluoroscopy demonstrates the needle in the and injected contrast in the right gle nohumeral joint. Space appears normal. No evident articular sided rotator cuff tear. IMPRESSION: 1. Successful left glenohumeral joint injection of a dilute iodinated contrast mixture for subsequent CT of the diaphragm which will be dictated separately. Reviewed, dictated and finalized at location A.
--- NOTE | ~2024-12-08 | CT_ITS ---
EXAMINATION: CT shoulder LT w con DATE: 12/08/2024 11:33 INDICATION: Left shoulder pain TECHNIQUE: High resolution computed tomography (CT) arthrogram of the left shoulder was performed wit h intra-articular contrast but without intravenous contrast. Details of the joint injection and contr ast mixture have been dictated separately. Additional sagittal and coronal reconstructions were perfo rmed. Automated exposure control and iterative reconstruction technique were employed. The dose-lengt h product was 419.66 mGy-cm. COMPARISON: None FINDINGS: Bone alignment is normal. No fracture. Chondrocalcinosis and mild osteoarthritis at the acromioclavic ular joint. There is small amount of heterotopic ossification along the dorsal joint capsule which co uld be related to prior capsular injury such as in the setting of a low-grade acromioclavicular joint separation. Mild glenohumeral osteoarthritis with mild partial-thickness cartilage loss with smooth chondral surface and without degenerative subchondral changes at the cephalad third of the glenoid. N ormal cartilage along the humeral head. Subtle contrast extends into a small labral tear extending fr om the 9:30-10:30 position of the posterior superior glenoid labrum. Contrast surrounds the unremarka ble appearing long head of the biceps tendon.. Rotator cuff appears unremarkable with no tear along t he bursal side of the rotator cuff. No asymmetric muscular atrophy of the left rotator cuff or should er girdle. Small amount of calcification associated with left apical pleural-parenchymal scarring. 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 Atherosclerotic coronary artery calcifications with change of prior medial sternotomy an d coronary artery bypass grafting evident on the medical data analyst topogram. Also seen on the medical data analyst topogram is a nterior plate-screw fixation for prior lower cervical anterior spinal fusion. No pathologically enlar ged lymphadenopathy at the left axilla. IMPRESSION: 1. Mild left glenohumeral osteoarthritis with small tear at the posterior superior glenoid labrum. Reviewed, dictated and finalized at location A. IMPRESSION: 1. Mild left glenohumeral osteoarthritis with small tear at the posterior super ior glenoid labrum.
== END 2024-12-08 10:10 | disposition home or self-care (01) ==
LOC: MICIMG 10:10
PROVIDERS: PCP Internal Medicine; Visit Provider Orthopaedic Surgery
DX: M19.012 Primary osteoarthritis, left shoulder (principal); S43.432A Superior glenoid labrum lesion of left shoulder, initial encounter; X58.XXXA Exposure to other specified factors, initial encounter
CPT/HCPCS: 23350; 73201